=== PATIENT | female | born 1990 | race Caucasian/White ===

== ENCOUNTER 2021-10-09 12:05 | Emergency (ER) | payer OTHER, SELFPAY ==
[2021-10-09 12:12] VITALS: BP 109/61; PULSE 82; RESP 18; TEMP 36.8; O2SAT 98
--- NOTE | 2021-10-09 12:18 | ED.URI ---
HPI - URI/Sore Throat General Chief Complaint: Upper Respiratory Infection Stated Complaint: sinus infection Time Seen by Provider: 10/09/21 12:11 Source: patient and RN notes reviewed History of Present Illness HPI Narrative: Patient is a 31-year-old female who presents the urgent care with complaints of a sinus infection for at least 1 month. Patient states that she has severe chronic allergies and had been taking Zyrtec and Benadryl daily as well as allergy shots until she got . Patient states that her 3-month-old is still breast-feeding and she was trying to let it go . Patient states that the last 5 days she has had severe head congestion, lost her voice, head pressure and headaches. Patient denies of any use of [id number] medication. Denies of any fevers. No other acute complaints. No acute distress noted. Patient aware of the plan of care. Some parts of this dictation were generated by voice recognition software and may contain typographical and/or grammatical inaccuracies. Related Data Allergies Allergy/AdvReac Type Severity Reaction Status Date / Time No Known Allergies Allergy Verified 10/09/21 12:20 Review of Systems Review of Systems: CONSTITUTIONAL: Denies fever, chills, or sweats. EYES: Denies visual changes, redness, or discharge. ENT: Reports of postnasal drainage, rhinorrhea, hoarse voice, sinus pressure CARDIOVASCULAR: Denies chest pain, palpitations, or edema. RESPIRATORY: Denies cough or dyspnea. GASTROINTESTINAL: Denies abdominal pain, nausea, vomiting, or diarrhea. GENITOURINARY: Denies dysuria or hematuria. SKIN: Denies rash or itching. MUSCULOSKELETAL: Denies back pain, joint pain, or myalgia. NEUROLOGIC: Reports of headaches All other systems reviewed are negative, except as documented in HPI. PMFSH Comments At the time of my signature, I reviewed and agree with the nursing past medical, surgical, social, and family history. There is no relevant family history pertinent to the patient complaint. Exam Narrative: GENERAL: This is a well-nourished, well-developed patient, in no apparent distress. HEAD: normocephalic, atraumatic. EYES: PERRL. Sclera clear/white. Vision is grossly intact. EARS: External ears normal, auditory canals clear and without drainage, TMs normal without perforation. Hearing grossly intact. NOSE: External nose normal with no obvious nasal discharge. Bilateral erythemic nares with clear to yellow rhinorrhea THROAT: Mucous membranes moist. Absent tonsils and uvula. Moderate postnasal drainage. Hoarseness NECK: Neck supple CARDIOVASCULAR: Regular rate and rhythm without murmurs, gallops, or rubs. RESPIRATORY: Clear to auscultation. Breath sounds equal bilaterally. No wheezes, rales, or rhonchi. SKIN: warm, intact with no suspicious lesions or rash, good texture and turgor. NEURO: awake, alert, and oriented to person, place and time. There were no obvious focal neurologic abnormalities. EXTREMITIES: No clubbing, cyanosis, or edema. Course Course Level of Care: Express Care Visit Vital Signs Vital signs: Vital Signs Temperature 98.2 F 10/09/21 12:12 Pulse Rate 82 10/09/21 12:12 Respiratory Rate 18 10/09/21 12:12 Blood Pressure 109/61 10/09/21 12:12 Pulse Oximetry 98 10/09/21 12:12 Temperature 98.2 F 10/09/21 12:22 Pulse Rate 82 10/09/21 12:22 Respiratory Rate 18 10/09/21 12:22 Blood Pressure 109/61 10/09/21 12:22 Pulse Oximetry 98 10/09/21 12:22 Reviewed MDM - URI/Sore Throat MDM Narrative Medical decision making narrative: Advised patient complete the oral antibiotic regimen as prescribed. Be sure to eat and drink with medication. May use the [id number] allergy medications. Unfortunately all above remedies will diminished breastmilk supply. Continue sinus rinses. May use Flonase nasal spray for nasal congestion and postnasal drainage. Follow-up with your PCP within 2 to 5 days or for worsening symptoms or fail
[2021-10-09 12:22] VITALS: BP 109/61; PULSE 82; RESP 18; TEMP 36.8; O2SAT 98
== END 2021-10-09 12:40 | disposition home or self-care (01) ==
PROVIDERS: Emergency Provider Nurse Practitioner Family; PCP Family Medicine
DX: J32.9 Chronic sinusitis, unspecified (principal)
CPT/HCPCS: 99213; G0463